=== PATIENT | male | born 1950 | race Caucasian/White ===

== ENCOUNTER 2017-02-14 05:14 | Inpatient (IN) | payer OTHER ==
[2017-02-14] VITALS (14 sets, daily range): BP systolic 109–184; BP diastolic 56–84; PULSE 58–84; RESP 16–28; TEMP 97.6–98.4; O2SAT 97–100
[~2017-02-14] VITALS: Ht 172.7 cm; Wt 83.1 kg
[~2017-02-14 05:14] MED LIST: ASPI325T PO; ATOR20TA PO; BISA5TAB PO; GLUCTAB PO; METO25 PO; NIAC500T5 PO; VITA10002 PO
[2017-02-14 05:29] LABS: AUTOMATED NEUTROPHIL # 2.3 TH/MM3 (1.8-7.7); BASOPHIL % 1.1 % (0.0-2.0); EOSINOPHIL # 0.1 TH/MM3 (0-0.4); HEMATOCRIT 42.9 % (39.0-51.0); HEMO FLAGS DIFF FINAL; LYMPH % 37.9 % (9.0-44.0); LYMPHOCYTE # 1.7 TH/MM3 (1.0-4.8); MEAN CELL VOLUME 100.3 FL (80.0-100.0); MEAN CORPUSCULAR HEMOGLOBIN 33.1 PG (27.0-34.0); PLATELET COUNT 191 TH/MM3 (150-450); RED BLOOD COUNT 4.27 MIL/MM3 (4.50-5.90); RED CELL DISTRIBUTION WIDTH 13.4 % (11.6-17.2); WHITE BLOOD COUNT 4.4 TH/MM3 (4.0-11.0)
[2017-02-14] MEDS ORDERED: [UNRECOGNIZED DRUG - CODE] (05:30)
[2017-02-14] MEDS ORDERED: ATOR20TA15 PO (05:30)
[2017-02-14] MEDS ORDERED: ASPI325T PO (05:30)
[2017-02-14] MEDS ORDERED: METF500T4 PO (05:30)
[2017-02-14] MEDS ORDERED: SODIUM CHLORIDE 0.9% FLUSH 10 ML FLUSH IVF PRN (05:30)
[2017-02-14] MEDS ORDERED: NIAC500T67 PO (05:30)
[2017-02-14] MEDS ORDERED: METO25TA3 PO (05:30)
[2017-02-14 05:34] LABS: I-STAT POTASSIUM 3.9 MMOL/L (3.5-4.9)
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
[2017-02-14 05:40] LABS: APTT (PATIENT) 22.2 SEC (24.3-30.1); PROTHROMBIN TIME - PATIENT 10.6 SEC (9.8-11.6)
[2017-02-14] MEDS ORDERED: IOHEXOL 350 MG/ML 10 ML VIAL (for RAD DIAG) IV ONE (05:41)
[2017-02-14] MEDS ORDERED: METFORMIN HOLD POST IV CONTRAST SCH (05:45)
[2017-02-14] MEDS ORDERED: TETANUS/DIPHTHERIA TOXOID ADULT 0.5 ML VIAL IM ONE (05:45)
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
[2017-02-14] MEDS ORDERED: MORPHINE SULFATE 4 MG/ML INJ IV PUSH ONE (06:15)
[2017-02-14] MEDS ORDERED: ONDANSETRON HCL 4 MG/2 ML VIAL IV PUSH ONE (06:15)
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
[2017-02-14] MEDS ORDERED: MISCELLANEOUS NURSING INFORMATION XX SCH (06:30)
[2017-02-14] MEDS ORDERED: CHLORHEXIDINE GLUCONATE 2 % 1 PACK (2 CLOTHS) TOP PRN (06:30)
[2017-02-14] MEDS ORDERED: ENALAPRILAT 1.25 MG/ML VIAL IV PRN (06:30)
[2017-02-14] MEDS ORDERED: ONDANSETRON HCL 4 MG/2 ML VIAL IV PRN (06:30)
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
[2017-02-14] MEDS: LACTATED RINGER'S 1000 ML INJ 1,000 ML IV SCH ×3 (06:46→22:20)
[2017-02-14] MEDS ORDERED: LORazepam 2 MG/ML VIAL ONE (07:35)
[2017-02-14] MEDS ORDERED: fentaNYL CITRATE 250 MCG/5 ML AMP ONE (07:35)
--- NOTE | 2017-02-14 08:35 | PD.RAD ---
Post Procedure Progress Note Pre Procedure Diagnosis: (1) Liver laceration Post Procedure Diagnosis: (1) Liver laceration Procedure Date: Feb 14, 2017 Supervising Radiologist: Sanju Steiner Proceduralist/Assist: Yolnada Garcia, RT(R)(), Maria G Dee RT(R)() Anesthesia: Local Plan of Activity Patient to Unit: Nursing Unit Patient Condition: Good Additional Comments: active extravasation from a small segment 7 branch. Coil embolized. Additional gelfoam embolization of seg 8 and 7 right hepatic arteries. See PACS Report for procedural detail/treatment Sanju Steiner MD Feb 14, 2017 08:35
[2017-02-14] MEDS: METOPROLOL TARTRATE 25 MG TAB PO SCH ×2 (09:00→21:59)
[2017-02-14] MEDS: ATORVASTATIN 20 MG TAB PO SCH (09:00)
[2017-02-14] MEDS ORDERED: GELATIN 12 MM/7 MM FOAM I-ARTERIAL ONE (09:11)
[2017-02-14] MEDS ORDERED: IODIXANOL 320 MG/ML 50 ML VIAL (for RAD SPEC) I-ARTERIAL ONE (09:11)
[2017-02-14] MEDS: HYDROmorphone HCL PF 1 MG/ML VIAL IVP PRN ×3 (09:30→23:00)
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
[2017-02-14] MEDS ORDERED: DIAZEPAM 2 MG TAB PO SCH (13:00)
[2017-02-14 17:20] LABS: HEMATOCRIT 36.6 % (39.0-51.0); REVIEW FLAG FINAL
[2017-02-14] MEDS: DIAZEPAM 2 MG TAB PO SCH (20:12)
[2017-02-14 23:38] LABS: HEMATOCRIT 35.5 % (39.0-51.0); REVIEW FLAG FINAL
[2017-02-15] VITALS (13 sets, daily range): BP systolic 136–170; BP diastolic 71–83; PULSE 72–105; RESP 16–22; TEMP 97.3–99.8; O2SAT 93–99
[2017-02-15] MEDS: HYDROmorphone HCL PF 1 MG/ML VIAL IVP PRN ×3 (01:19→08:11)
[2017-02-15] MEDS: DIAZEPAM 2 MG TAB PO SCH ×4 (02:13→20:00)
[2017-02-15] MEDS ORDERED: METF1000 PO (02:43)
[2017-02-15] MEDS ORDERED: ASPI81CH37 (02:43)
[2017-02-15] MEDS ORDERED: OMEGCAP PO (02:43)
[2017-02-15] MEDS ORDERED: METO50TA PO (02:43)
[2017-02-15] MEDS ORDERED: IBUP-232 PO (02:43)
[2017-02-15] MEDS ORDERED: CHLORHEXIDINE GLUCONATE 2 % 1 PACK (2 CLOTHS) TOP SCH (04:00)
[2017-02-15 05:04] LABS: AUTOMATED NEUTROPHIL # 7.8 TH/MM3 (1.8-7.7); BASOPHIL % 0.1 % (0.0-2.0); HEMATOCRIT 36.2 % (39.0-51.0); HEMO FLAGS DIFF FINAL; LYMPH % 8.4 % (9.0-44.0); LYMPHOCYTE # 0.8 TH/MM3 (1.0-4.8); MEAN CELL VOLUME 100.5 FL (80.0-100.0); MEAN CORPUSCULAR HEMOGLOBIN 32.9 PG (27.0-34.0); MEAN CORPUSCULAR HGB CONC 32.7 % (32.0-36.0); MONO % 12.1 % (0.0-8.0); NEUT % 79.4 % (16.0-70.0); PLATELET COUNT 141 TH/MM3 (150-450); RED BLOOD COUNT 3.61 MIL/MM3 (4.50-5.90); RED CELL DISTRIBUTION WIDTH 13.6 % (11.6-17.2); WHITE BLOOD COUNT 9.8 TH/MM3 (4.0-11.0)
[2017-02-15 05:26] LABS: BICARBONATE 32.1 MEQ/L (21.0-32.0); POTASSIUM 4.3 MEQ/L (3.5-5.1)
--- NOTE | 2017-02-15 05:58 | RADRPT ---
EXAM DATE/TIME: 02/15/2017 04:36 [facility] COMPARISON: No previous studies available for comparison. INDICATIONS : Shortness of breath. MEDICAL HISTORY : Hypertension. Diabetes mellitus type II. SURGICAL HISTORY : None. ENCOUNTER: Subsequent ACUITY: 2 days PAIN SCORE: Non-responsive. LOCATION: Bilateral chest FINDINGS: A single view of the chest demonstrates the lungs to be poorly aerated without evidence of mass, infi ltrate or effusion. The cardiomediastinal contours are unremarkable. Multiple known right sided rib fractures. CONCLUSION: Multiple known right sided rib fractures small lung volumes. Amado Foote MD on February 15, 2017 at 5:56 Board Certified Radiologist. This report was verified electronically.
[2017-02-15] MEDS: LACTATED RINGER'S 1000 ML INJ 1,000 ML IV SCH (06:53)
[2017-02-15 07:36] LABS: CALCIUM-PROTEIN CORRECTED 8.8 MG/DL (8.5-10.1)
[2017-02-15] MEDS: ATORVASTATIN 20 MG TAB PO SCH (08:10)
[2017-02-15] MEDS: METOPROLOL TARTRATE 25 MG TAB PO SCH ×2 (08:11→22:00)
[2017-02-15] MEDS ORDERED: DEXTROSE 50% IN WATER 50 ML VIAL(D50) IV PRN ×2 (08:15→09:45)
[2017-02-15] MEDS ORDERED: RESP: ALBUTEROL 2.5 MG/IPRATROPIUM 0.5 MG NEB (PRN) NEB (08:15)
[2017-02-15] MEDS ORDERED: GLUCAGON 1 MG/ML VIAL OTHER PRN (08:15)
[2017-02-15] MEDS: LIDOCAINE HCL 5% PATCH T-DERMAL SCH (09:30)
[2017-02-15] MEDS: DOCUSATE SODIUM 50 MG/SENNA 8.6 MG TAB PO SCH ×2 (09:30→21:00)
[2017-02-15] MEDS: RESP: ALBUTEROL 2.5 MG/IPRATROPIUM 0.5 MG NEB (SCH) NEB ×3 (11:24→21:17)
--- NOTE | 2017-02-15 12:09 | HHI.CCPN ---
Subjective 24 Hour Review/Hospital Course 02/15/17 Patient is still complaining of severe amount of pain, and not very mobile because of that He underwent successful embolization of segment 7 and 8 of his liver yesterday and is heme endemic stable Objective Vital Signs Date Time Temp Pulse Resp B/P Pulse Ox O2 Delivery O2 Flow Rate FiO2 02/15/17 09:04 98.1 74 16 156/77 97 02/15/17 08:22 Nasal Cannula 2.00 Intake and Output 02/14/17 02/14/17 02/15/17 08:00 16:00 00:00 Intake Total 1869 ml Output Total 325 ml 460 ml Balance -325 ml 1409 ml Result Diagram: 02/15/17 0355 02/15/17 0355 Imaging Last 24 hours Impressions Chest X-Ray 02/15/17 0000 Signed Impressions: Service Date/Time: Wednesday, February 15, 2017 04:36 - CONCLUSION: Multiple known right sided rib fractures small lung volumes. Amado Foote MD Exam WRITING TUTOR Alert and oriented, no acute distress Hemodynamic/Cardiac Regular rate and rhythm, stable Pulmonary/Respiratory Clear to auscultation bilaterally, exquisitely tender to his right thoracic wall Abdomen/GI Nutrition Soft, nontender, nondistended Hematologic Hemoglobin stable at 11.9 following hepatic embolization Assessment and Plan Plan Transfer to floor Regular diabetic diet Transition from IV to by mouth pain control Continue to hold the patient's metformin for 48 hours after his dye load Aggressive pulmonary toilet Nito Lobato MD Feb 15, 2017 12:09
[2017-02-15] MEDS: INSULIN NovoLIN REGULAR SUPPLEMENTAL SCALE SQ SCH ×3 (12:32→22:19)
[2017-02-15] MEDS ORDERED: HYDROmorphone HCL PF 1 MG/ML VIAL IVP PRN (13:30)
[2017-02-15] MEDS: ENOXAPARIN SODIUM 30 MG/0.3 ML SYRINGE SQ SCH (13:54)
[2017-02-15] MEDS: IBUPROFEN 400 MG TAB PO SCH ×2 (17:01→22:15)
[2017-02-16] VITALS (8 sets, daily range): BP systolic 110–147; BP diastolic 58–71; PULSE 73–101; RESP 18–22; TEMP 96.9–99.4; O2SAT 94–99
[2017-02-16] MEDS: ENOXAPARIN SODIUM 30 MG/0.3 ML SYRINGE SQ SCH ×2 (01:20→13:31)
[2017-02-16] MEDS: DIAZEPAM 2 MG TAB PO SCH ×4 (01:21→22:29)
[2017-02-16] MEDS: IBUPROFEN 400 MG TAB PO SCH ×3 (06:03→22:29)
--- NOTE | 2017-02-16 06:07 | RADRPT ---
EXAM DATE/TIME: 02/16/2017 05:01 [facility] COMPARISON: CHEST SINGLE AP, February 15, 2017, 4:36. INDICATIONS : Shortness of breath, possible pulmonary disease. MEDICAL HISTORY : Hypertension. Diabetes mellitus type II. SURGICAL HISTORY : None. ENCOUNTER: Subsequent ACUITY: 3 days PAIN SCORE: Non-responsive. LOCATION: Bilateral chest FINDINGS: A single view of the chest demonstrates small lung volumes bilaterally. Mild consolidation both lung bases. Numerous right-sided rib fractures. No visible pneumothorax. The cardiomediastinal contours are unremarkable. Embolization coil is identified overlying the liver. CONCLUSION: Small lung findings bilaterally. Numerous right-sided rib fractures with a small right pleural effusi on. Right clavicle fracture likely chronic. Amado Foote MD on February 16, 2017 at 6:04 Board Certified Radiologist. This report was verified electronically.
[2017-02-16 06:20] LABS: AUTOMATED NEUTROPHIL # 8.1 TH/MM3 (1.8-7.7); BASOPHIL % 0.3 % (0.0-2.0); EOSINOPHIL % 0.3 % (0.0-4.0); HEMO FLAGS DIFF FINAL; LYMPH % 6.3 % (9.0-44.0); LYMPHOCYTE # 0.6 TH/MM3 (1.0-4.8); MEAN CELL VOLUME 100.3 FL (80.0-100.0); MEAN CORPUSCULAR HEMOGLOBIN 34.1 PG (27.0-34.0); MONO % 11.1 % (0.0-8.0); PLATELET COUNT 116 TH/MM3 (150-450); RED CELL DISTRIBUTION WIDTH 13.4 % (11.6-17.2); WHITE BLOOD COUNT 9.9 TH/MM3 (4.0-11.0)
[2017-02-16 06:40] LABS: ANION GAP 6 MEQ/L (5-15); AST (GOT) 633 U/L (15-37); BICARBONATE 32.9 MEQ/L (21.0-32.0); BLOOD UREA NITROGEN 14 MG/DL (7-18); CHLORIDE 98 MEQ/L (98-107); POTASSIUM 3.7 MEQ/L (3.5-5.1); SODIUM (NA) 137 MEQ/L (136-145)
[2017-02-16 06:47] LABS: ALKALINE PHOSPHATASE 84 U/L (45-117); ALT (GPT) 1332 U/L (12-78); TOTAL BILIRUBIN ADULT 1.5 MG/DL (0.2-1.0)
[2017-02-16] MEDS: RESP: ALBUTEROL 2.5 MG/IPRATROPIUM 0.5 MG NEB (SCH) NEB ×4 (07:43→20:52)
[2017-02-16] MEDS: LACTULOSE SYRUP 20 GM/30 ML CUP PO SCH (10:12)
[2017-02-16] MEDS: ATORVASTATIN 20 MG TAB PO SCH (10:13)
[2017-02-16] MEDS: METOPROLOL TARTRATE 25 MG TAB PO SCH ×2 (10:13→22:29)
[2017-02-16] MEDS: INSULIN NovoLIN REGULAR SUPPLEMENTAL SCALE SQ SCH ×4 (10:24→22:32)
[2017-02-16] MEDS: DOCUSATE SODIUM 50 MG/SENNA 8.6 MG TAB PO SCH ×2 (10:25→22:30)
[2017-02-16] MEDS: LIDOCAINE HCL 5% PATCH T-DERMAL SCH (10:25)
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
[2017-02-17] VITALS (8 sets, daily range): BP systolic 104–140; BP diastolic 57–68; PULSE 77–101; RESP 18–20; TEMP 95.3–98.9; O2SAT 8–99
[2017-02-17] MEDS: ENOXAPARIN SODIUM 30 MG/0.3 ML SYRINGE SQ SCH ×2 (01:03→13:08)
[2017-02-17] MEDS: DIAZEPAM 2 MG TAB PO SCH ×4 (03:31→20:13)
[2017-02-17] MEDS: IBUPROFEN 400 MG TAB PO SCH ×3 (06:24→21:50)
[2017-02-17] MEDS: INSULIN NovoLIN REGULAR SUPPLEMENTAL SCALE SQ SCH ×4 (06:24→21:53)
--- NOTE | 2017-02-17 06:42 | RADRPT ---
EXAM DATE/TIME: 02/17/2017 06:13 [facility] COMPARISON: CHEST SINGLE AP, February 16, 2017, 5:01. INDICATIONS : Hemothorax. MEDICAL HISTORY : None. SURGICAL HISTORY : None. ENCOUNTER: Initial ACUITY: 4 - 6 days PAIN SCORE: 6/10 LOCATION: Bilateral chest FINDINGS: Mild atelectasis again seen in both bases. No large effusion demonstrated. No pneumothorax. Right rib fractures are again seen. CONCLUSION: No change. Tye Neal MD on February 17, 2017 at 6:40 Board Certified Radiologist. This report was verified electronically.
[2017-02-17 07:36] LABS: HEMATOCRIT 31.4 % (39.0-51.0); REVIEW FLAG FINAL
[2017-02-17] MEDS: RESP: ALBUTEROL 2.5 MG/IPRATROPIUM 0.5 MG NEB (SCH) NEB ×2 (08:31→10:55)
[2017-02-17] MEDS: DOCUSATE SODIUM 50 MG/SENNA 8.6 MG TAB PO SCH ×2 (09:08→20:14)
[2017-02-17] MEDS: LACTULOSE SYRUP 20 GM/30 ML CUP PO SCH (09:08)
[2017-02-17] MEDS: METOPROLOL TARTRATE 25 MG TAB PO SCH ×2 (09:08→20:14)
[2017-02-17] MEDS: ATORVASTATIN 20 MG TAB PO SCH (09:08)
[2017-02-17] MEDS: LIDOCAINE HCL 5% PATCH T-DERMAL SCH (09:09)
[2017-02-17] MEDS ORDERED: MAGNESIUM CITRATE SOLN 300 ML BTL PO ONE (12:00)
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
[2017-02-17] MEDS ORDERED: MILKSUS PO (18:26)
[2017-02-17] MEDS ORDERED: SENN1TAB PO (18:26)
[2017-02-17] MEDS ORDERED: BISACODYL 10 MG SUPP RECTAL ONE (19:45)
[2017-02-17] MEDS: FAMOTIDINE 20 MG TAB PO SCH (20:14)
[2017-02-18] VITALS: BP 113/55; PULSE 90; RESP 18; TEMP 98.4; O2SAT 95
[2017-02-18] MEDS: DIAZEPAM 2 MG TAB PO SCH ×4 (01:58→20:00)
[2017-02-18] MEDS: ENOXAPARIN SODIUM 30 MG/0.3 ML SYRINGE SQ SCH ×2 (01:58→12:05)
[2017-02-18 05:27] LABS: AUTOMATED NEUTROPHIL # 5.3 TH/MM3 (1.8-7.7); BASOPHIL % 0.4 % (0.0-2.0); EOSINOPHIL # 0.1 TH/MM3 (0-0.4); EOSINOPHIL % 1.5 % (0.0-4.0); HEMATOCRIT 27.3 % (39.0-51.0); HEMO FLAGS DIFF FINAL; LYMPH % 7.8 % (9.0-44.0); LYMPHOCYTE # 0.5 TH/MM3 (1.0-4.8); MEAN CELL VOLUME 100.2 FL (80.0-100.0); MEAN CORPUSCULAR HEMOGLOBIN 34.1 PG (27.0-34.0); MEAN CORPUSCULAR HGB CONC 34.1 % (32.0-36.0); MONO % 11.2 % (0.0-8.0); NEUT % 79.1 % (16.0-70.0); PLATELET COUNT 144 TH/MM3 (150-450); RED BLOOD COUNT 2.72 MIL/MM3 (4.50-5.90); RED CELL DISTRIBUTION WIDTH 13.4 % (11.6-17.2); WHITE BLOOD COUNT 6.7 TH/MM3 (4.0-11.0)
[2017-02-18] MEDS: IBUPROFEN 400 MG TAB PO SCH ×3 (05:35→21:12)
[2017-02-18] MEDS: INSULIN NovoLIN REGULAR SUPPLEMENTAL SCALE SQ SCH ×4 (05:40→21:15)
[2017-02-18 05:58] LABS: ANION GAP 5 MEQ/L (5-15); AST (GOT) 115 U/L (15-37); BICARBONATE 36.3 MEQ/L (21.0-32.0); BLOOD UREA NITROGEN 24 MG/DL (7-18); CHLORIDE 98 MEQ/L (98-107); GLOMERULAR FILTRATION RATE 65 ML/MIN (>89); MAGNESIUM 2.5 MG/DL (1.5-2.5); POTASSIUM 3.9 MEQ/L (3.5-5.1); SODIUM (NA) 139 MEQ/L (136-145)
[2017-02-18 05:59] LABS: ALT (GPT) 637 U/L (12-78)
[2017-02-18 06:01] LABS: ALKALINE PHOSPHATASE 126 U/L (45-117); TOTAL BILIRUBIN ADULT 0.9 MG/DL (0.2-1.0)
[2017-02-18 08:00] VITALS: BP 145/59; PULSE 90; RESP 16; TEMP 95.6; O2SAT 96
[2017-02-18] MEDS: DOCUSATE SODIUM 50 MG/SENNA 8.6 MG TAB PO SCH ×2 (08:05→21:12)
[2017-02-18] MEDS: SODIUM CHLORIDE 0.9% FLUSH 10 ML FLUSH IV FLUSH PRN (08:05)
[2017-02-18] MEDS: LACTULOSE SYRUP 20 GM/30 ML CUP PO SCH (08:05)
[2017-02-18] MEDS: METOPROLOL TARTRATE 25 MG TAB PO SCH ×2 (08:05→21:11)
[2017-02-18] MEDS: ATORVASTATIN 20 MG TAB PO SCH (08:06)
[2017-02-18] MEDS: LIDOCAINE HCL 5% PATCH T-DERMAL SCH (08:09)
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
[2017-02-18 12:00] VITALS: BP 150/78; PULSE 83; RESP 16; TEMP 95.8; O2SAT 96
[2017-02-18 16:00] VITALS: BP 160/76; PULSE 103; RESP 16; TEMP 100.5; O2SAT 94
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
[2017-02-18 20:30] VITALS: BP 124/63; PULSE 100; RESP 18; TEMP 99.1; O2SAT 96
[2017-02-18] MEDS: FAMOTIDINE 20 MG TAB PO SCH (21:12)
[2017-02-19] VITALS (8 sets, daily range): BP systolic 124–177; BP diastolic 64–82; PULSE 82–109; RESP 17–18; TEMP 97.3–99.4; O2SAT 93–98
[2017-02-19] MEDS: ENOXAPARIN SODIUM 30 MG/0.3 ML SYRINGE SQ SCH ×2 (01:12→11:34)
[2017-02-19] MEDS: DIAZEPAM 2 MG TAB PO SCH ×4 (01:12→20:00)
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
[2017-02-19 05:55] LABS: AUTOMATED NEUTROPHIL # 4.8 TH/MM3 (1.8-7.7); BASOPHIL % 0.2 % (0.0-2.0); EOSINOPHIL # 0.2 TH/MM3 (0-0.4); EOSINOPHIL % 2.5 % (0.0-4.0); HEMATOCRIT 28.7 % (39.0-51.0); HEMO FLAGS DIFF FINAL; LYMPH % 8.1 % (9.0-44.0); LYMPHOCYTE # 0.5 TH/MM3 (1.0-4.8); MEAN CELL VOLUME 99.2 FL (80.0-100.0); MEAN CORPUSCULAR HGB CONC 34.2 % (32.0-36.0); NEUT % 76.2 % (16.0-70.0); PLATELET COUNT 180 TH/MM3 (150-450); RED BLOOD COUNT 2.89 MIL/MM3 (4.50-5.90); RED CELL DISTRIBUTION WIDTH 13.5 % (11.6-17.2); WHITE BLOOD COUNT 6.3 TH/MM3 (4.0-11.0)
[2017-02-19 06:19] LABS: ANION GAP 7 MEQ/L (5-15); AST (GOT) 71 U/L (15-37); BICARBONATE 33.7 MEQ/L (21.0-32.0); BLOOD UREA NITROGEN 19 MG/DL (7-18); CHLORIDE 98 MEQ/L (98-107); GLOMERULAR FILTRATION RATE 67 ML/MIN (>89); POTASSIUM 3.8 MEQ/L (3.5-5.1); SODIUM (NA) 139 MEQ/L (136-145)
[2017-02-19 06:20] LABS: ALT (GPT) 478 U/L (12-78)
[2017-02-19 06:23] LABS: ALKALINE PHOSPHATASE 156 U/L (45-117)
[2017-02-19] MEDS: IBUPROFEN 400 MG TAB PO SCH ×3 (06:28→20:56)
[2017-02-19] MEDS: INSULIN NovoLIN REGULAR SUPPLEMENTAL SCALE SQ SCH ×4 (06:30→21:02)
[2017-02-19] MEDS: DOCUSATE SODIUM 50 MG/SENNA 8.6 MG TAB PO SCH ×2 (07:53→20:56)
[2017-02-19] MEDS: ATORVASTATIN 20 MG TAB PO SCH (07:53)
[2017-02-19] MEDS: LACTULOSE SYRUP 20 GM/30 ML CUP PO SCH (07:54)
[2017-02-19] MEDS: METOPROLOL TARTRATE 25 MG TAB PO SCH ×2 (07:54→20:56)
[2017-02-19] MEDS: SODIUM CHLORIDE 0.9% FLUSH 10 ML FLUSH IV FLUSH PRN (07:54)
[2017-02-19] MEDS: LIDOCAINE HCL 5% PATCH T-DERMAL SCH (07:56)
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
[2017-02-19] MEDS: AZITHROMYCIN 250 MG TAB PO SCH (14:41)
[2017-02-19] MEDS: FAMOTIDINE 20 MG TAB PO SCH (20:56)
[2017-02-20] MEDS: DIAZEPAM 2 MG TAB PO SCH ×3 (00:17→12:53)
[2017-02-20] MEDS: ENOXAPARIN SODIUM 30 MG/0.3 ML SYRINGE SQ SCH ×2 (00:17→11:23)
[2017-02-20 00:25] VITALS: BP 135/69; PULSE 92; RESP 18; TEMP 97.8; O2SAT 93
[2017-02-20] MEDS: INSULIN NovoLIN REGULAR SUPPLEMENTAL SCALE SQ SCH ×3 (06:03→16:00)
[2017-02-20] MEDS: IBUPROFEN 400 MG TAB PO SCH ×2 (06:03→12:55)
[2017-02-20 06:31] LABS: AUTOMATED NEUTROPHIL # 6.7 TH/MM3 (1.8-7.7); BASOPHIL % 0.3 % (0.0-2.0); EOSINOPHIL # 0.1 TH/MM3 (0-0.4); EOSINOPHIL % 1.2 % (0.0-4.0); HEMATOCRIT 33.9 % (39.0-51.0); LYMPH % 7.1 % (9.0-44.0); LYMPHOCYTE # 0.6 TH/MM3 (1.0-4.8); MEAN CORPUSCULAR HEMOGLOBIN 33.2 PG (27.0-34.0); MEAN CORPUSCULAR HGB CONC 32.9 % (32.0-36.0); MONO % 14.6 % (0.0-8.0); NEUT % 76.8 % (16.0-70.0); PLATELET COUNT 201 TH/MM3 (150-450); RED BLOOD COUNT 3.35 MIL/MM3 (4.50-5.90); RED CELL DISTRIBUTION WIDTH 13.5 % (11.6-17.2); WHITE BLOOD COUNT 8.7 TH/MM3 (4.0-11.0)
[2017-02-20 06:34] LABS: ALT (GPT) 316 U/L (12-78); ANION GAP 8 MEQ/L (5-15); AST (GOT) 55 U/L (15-37); BICARBONATE 26.1 MEQ/L (21.0-32.0); CHLORIDE 101 MEQ/L (98-107); GLOMERULAR FILTRATION RATE 79 ML/MIN (>89); SODIUM (NA) 135 MEQ/L (136-145)
[2017-02-20 06:35] LABS: ALKALINE PHOSPHATASE 151 U/L (45-117)
[2017-02-20 06:43] LABS: BLOOD UREA NITROGEN 17 MG/DL (7-18)
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
[2017-02-20 07:10] LABS: HEMO FLAGS AUTO DIFF
[2017-02-20 08:00] VITALS: BP 152/71; PULSE 95; RESP 20; TEMP 98.8; O2SAT 97
[2017-02-20 08:54] LABS: SCAN/DIFF AUTO DIFF CONFIRMED
[2017-02-20] MEDS: LACTULOSE SYRUP 20 GM/30 ML CUP PO SCH (09:00)
[2017-02-20] MEDS: DOCUSATE SODIUM 50 MG/SENNA 8.6 MG TAB PO SCH (09:00)
[2017-02-20 09:02] VITALS: O2SAT 95
[2017-02-20] MEDS: ATORVASTATIN 20 MG TAB PO SCH (10:23)
[2017-02-20] MEDS: METOPROLOL TARTRATE 25 MG TAB PO SCH (10:23)
[2017-02-20] MEDS: AZITHROMYCIN 250 MG TAB PO SCH (10:24)
[2017-02-20] MEDS: LIDOCAINE HCL 5% PATCH T-DERMAL SCH (10:25)
[2017-02-20] MEDS ORDERED: AZIT250T3 PO (12:20)
[2017-02-20] MEDS ORDERED: OXYC-392 PO (12:38)
[2017-02-20 12:44] VITALS: BP 137/69; PULSE 89; RESP 20; TEMP 99.5; O2SAT 94
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
== END 2017-02-20 18:13 | disposition home or self-care (01) | DRG 988 ==
LOC: NEPE 05:14 → NEDA 06:10 → N03A 09:25 → N06A 02-15 18:08
PROVIDERS: ADMIT Surgery; ATTEND Surgery
PROC: 04L33DZ Occlusion of Hepatic Artery with Intraluminal Device, Percutaneous Approach (ICD-10-PCS; principal; 2017-02-14)
DX: S36.116A Major laceration of liver, initial encounter (principal); S22.41XA Multiple fractures of ribs, right side, initial encounter for closed fracture; I10 Essential (primary) hypertension; E11.9 Type 2 diabetes mellitus without complications; E78.5 Hyperlipidemia, unspecified; K59.00 Constipation, unspecified; M50.323 Other cervical disc degeneration at C6-C7 level; W17.89XA Other fall from one level to another, initial encounter; Y93.55 Activity, bike riding; Y92.9 Unspecified place or not applicable; Z79.84 Long term (current) use of oral hypoglycemic drugs
CPT/HCPCS: 36247; 36248; 37244; 70450; 71010; 71260; 72125; 74177; 75726; 75774; 76937; 80048; 80053; 82435; 82565; 82947; 82948; 83735; 84132; 84155; 84295; 84520; 85014; 85018; 85025; 85610; 85730; 86850; 86900; 86901; 90471; 90714; 94150; 94640; 94664; 99152; 99153; C1769; C1887; C1894; J1170; J1650; J2060; J2270; J2405; J3010; J7120; Q9967

== ENCOUNTER 2017-04-17 07:57 | Day surgery (SDC) | payer MEDICARE ==
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
[~2017-04-17 07:57] MED LIST changes: +ASPI81CH37; -ATOR20TA PO; +ATOR20TA15 PO; +AZIT250T3 PO; -BISA5TAB PO; -GLUCTAB PO; +IBUP-232 PO; +METF1000 PO; +METF500T4 PO; -METO25 PO; +METO25TA3 PO; +METO50TA PO; +MILKSUS PO; -NIAC500T5 PO; +NIAC500T67 PO; +OMEGCAP PO; +OXYC-392 PO; +SENN1TAB PO; -VITA10002 PO; +[UNRECOGNIZED DRUG - CODE]
[2017-04-17 09:12] VITALS: BP 159/79; PULSE 67; RESP 16; TEMP 96.7; O2SAT 100
[2017-04-17 09:30] VITALS: BP 156/85; PULSE 71; RESP 18; TEMP 96; O2SAT 100
[2017-04-17] MEDS ORDERED: LIDOCAINE HCL 1% PF 30 ML VIAL ONE (09:33)
--- NOTE | 2017-04-17 09:44 | RADRPT ---
EXAM DATE/TIME: 04/17/2017 09:25 [facility] COMPARISON: CHEST SINGLE AP, February 20, 2017, 5:17. INDICATIONS : S/p right side thoracentesis. MEDICAL HISTORY : Myocardial infarction. Hypertension Diabetes mellitus type II. SURGICAL HISTORY : Coronary artery stent. ENCOUNTER: Initial ACUITY: 1 day PAIN SCORE: 0/10 LOCATION: Right chest FINDINGS: A single view of the chest demonstrates persistent right basilar consolidation/effusion. Stable, like ly granulomatous type calcification in the right upper lung. Multiple displaced right-sided posterola teral rib fractures with an old healed fracture deformity of the right midclavicle. Osseous structure s otherwise appear to be intact. Left lung is grossly clear with interval resolution of some linear a telectatic changes previously seen in the lower lung field. Metallic coil projects over the right upp er abdominal quadrant/liver. CONCLUSION: 1. Persistent right basilar consolidation/effusion. No significant interval change. 2. Multiple posterolateral rib fractures with nonunion. Old healed fracture deformity of the right cl avicle. 3. Old granulomatous disease. 4. Previously seen linear atelectatic changes of the left hemidiaphragm have resolved. Lungs are now clear. 5. Embolization coil projects over the liver. . Rambo Fisher MD on April 17, 2017 at 9:29 Board Certified Radiologist. This report was verified electronically.
[2017-04-17 09:45] VITALS: BP 125/60; PULSE 72; RESP 16; O2SAT 99
[2017-04-17 10:00] VITALS: BP 121/74; PULSE 70; RESP 18; O2SAT 97
[2017-04-17 10:46] LABS: TOTAL PROTEIN,PLEURAL FLUID 5.6 GM/DL
[2017-04-17 12:20] LABS: PLEURAL FLUID LYMPHS 29 %
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
== END 2017-04-17 10:30 | disposition home or self-care (01) ==
LOC: HRAD 07:57 → HRIP 08:02 → HRAD 10:30
PROVIDERS: ATTEND Specialist
DX: J90 Pleural effusion, not elsewhere classified (principal); I25.2 Old myocardial infarction; I10 Essential (primary) hypertension; E11.9 Type 2 diabetes mellitus without complications; Z95.5 Presence of coronary angioplasty implant and graft
CPT/HCPCS: 32555; 71010; 82150; 82945; 83615; 83986; 84157; 87015; 87070; 87102; 87116; 87205; 87206; 88112; 88305; 89051; C1729